=== PATIENT | female | born 1985 | race Caucasian/White ===

== ENCOUNTER 2019-05-05 04:38 | Inpatient (IN) ==
[2019-05-05] MEDS ORDERED: OXYTOCIN 30 UNITS/500 ML BAG IV PRN ×2 (05:22→12:53)
[2019-05-05] MEDS: LACTATED RINGER'S 1,000 ML IV PRN ×2 (05:30→07:41)
[2019-05-05 06:06] LABS: Hematocrit (blood only) 37.7 % (37-47); Hemoglobin 12.8 g/dL (12.0-16.0); Mean Corpuscular Hemoglobin 31.1 pg (25-34); Mean Corpuscular Volume 91.5 fL (80-100); Mean Platelet Volume 9.7 fL (7.4-10.4); Platelet Count 308 K/uL (130-400); RDW Coefficient of Variation 13.1 % (11.5-14.5); RDW Standard Deviation 43.8 fL (36.4-46.3); Red Blood Count 4.12 M/uL (4.2-5.4); White Blood Count 14.45 K/uL (4.8-10.8)
[2019-05-05] MEDS ORDERED: ePHEDrine sulfate 50 MG/ML AMP ONE (07:11)
[2019-05-05] MEDS ORDERED: fentaNYL citrate 100 MCG/2 ML VIAL ONE (07:11)
[2019-05-05] MEDS ORDERED: BUPIVACAINE 0.25% 30 ML VIAL ONE (07:11)
[2019-05-05] MEDS ORDERED: fentaNYL 2MCG/ML ROPIV 1.25MG/ML 100 ML BAG EPI ONE (07:12)
--- NOTE | 2019-05-05 07:38 | History & Physical Report ---
Date of Service May 05, 2019 Assessment & Plan (1) Supervision of normal first : Spontaneous labor. Admit to L&D. Would like epidural. labs, EFM/toco, IV access. History of Present Illness Chief Complaint: spontaneous labor Primary Care Provider: Jalen Chowdary DO 33yo @ 41 08/29 presents in spontaneous labor with regular contractions. No gush of fluid, no vaginal bleeding. + movement. complicated by obesity. GBS negative. She was scheduled for induction of labor today. 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 Beliefs That Will Affect Care: None marital status: Current Living Situation: Spouse current occupational status: employed Other Information That Helps Us Care for You: No Feels Safe at Home: Yes Safety Concerns: Feels Safe At This Time Smoking Status: Never smoker Do You Dip or Chew Tobacco: No ; Second Hand Exposure: No ; Tobacco Cessation Education Requested by Patient: No Hx Alcohol Use: No Hx Substance Use: No Dental Care, Regularly: Yes Review of Systems All systems reviewed & are unremarkable except as noted in HPI & below Physical Exam Physical Exam: SVE 6-7/100/-2, bulging membranes per RN FHT Cat 1 [place] Q 2-3 Constitutional: WD/WN, vitals as above Respiratory: normal respiratory effort, lungs clear to auscultation no respiratory distress Cardiovascular: Rate/Rhythm: regular rate and regular rhythm Gastrointestinal (Abdomen): Inspection/Auscultation: abdomen normal to inspection Percussion/Palpation: abdomen soft; abdomen nontender Gravid. No s/s chorio or abruption. Skin: no rashes, warm and dry Psychiatric: A+Ox3, euthymic affect Results & Data Vital Signs (Past 12 Hours) Vital Signs Temp Pulse Resp BP Pulse Ox 05/05/19 07:29 108 H 100 05/05/19 07:27 77 126/70 05/05/19 07:24 100 H 100 05/05/19 05:03 36.9 C 18 05/05/19 04:59 78 120/73 05/05/19 04:51 36.9 C 20
[2019-05-05] MEDS ORDERED: NALBUPHINE HCL INJ 10 MG/ML AMP IV PRN (07:56)
[2019-05-05] MEDS ORDERED: ONDANSETRON INJ 2 MG/ML 2 ML VIAL IV PRN (07:56)
[2019-05-05] MEDS ORDERED: NALOXONE HCL 1 MG in SODIUM CHLORIDE 0.9% 1000ML 1,000 ML IV PRN (07:56)
[2019-05-05] MEDS ORDERED: NALOXONE HCL 0.4 MG/1 ML VIAL/CARP IV PRN (07:56)
[2019-05-05] MEDS ORDERED: fentaNYL 2MCG/ML ROPIV 1.25MG/ML 100 ML BAG EPI PRN (07:56)
[2019-05-05] MEDS ORDERED: DiphenhydrAMINE HCL 50 MG/ML VIAL IV PRN (07:56)
[2019-05-05] MEDS ORDERED: ePHEDrine sulfate 50 MG/ML AMP IV PRN (07:56)
[2019-05-05] MEDS ORDERED: PROMETHAZINE HCL 6.25 MG in SODIUM CHLORIDE 0.9% 50 ML IV PRN (07:56)
--- NOTE | 2019-05-05 07:56 | Anesthesiology Consultation ---
Date of Service May 05, 2019 Assessment & Plan (1) Encounter for pre-operative examination: Chart Review Chart Review: Patient NOT seen in Pre Admission Testing and Acceptable Risk for Labor Epidural Consults Requested none ASA ASA2 Proposed Anesthesia Anesthesia Type: Labor Epidural Risk / Benefits Reviewed With: PT / POA / Parent / Guardian, Accepts Plan and Informed Consent Obtained History Height/Weight Height: 5 ft 7 in Weight: 119.748 kg Allergies Allergy/AdvReac Type Severity Reaction Status Date / Time No Known Drug Allergies Allergy Verified 05/04/19 15:58 Medications Home Medications Medication Instructions Recorded Confirmed Last Taken [id number] 3-fat com #1 27 cap PO cap 01/30/19 05/04/19 Unknown mg-1 mg-300 mg capsule Active Medications Generic Name Dose Route Start Last Admin Trade Name Freq PRN Reason Stop Dose Admin Lactated Ringer's 1,000 mls @ 125 mls/hr 05/05/19 05:22 05/05/19 07:41 Lr IV 05/07/19 05:21 125 mls/hr .Q8H PRN Administration L&D Protocol Protocol Past Medical History Medical History Anemia Chicken pox [place] teeth extracted Exercise / Class Metabolic Activity II 4-5 Yardwork/Stairs/Walk up hill Past Family History Family History Aunt Breast cancer Mother Ovarian cyst Past Surgical History Surgical History S/P cholecystectomy Past Anesthesia History No Hx of Anesthesia Complications and No Family Hx of Anesthesia Complications History of PONV No Hx of PONV and No Hx of Motion Sickness Social History Smoking Status: Never smoker Do You Dip or Chew Tobacco: No Hx Alcohol Use: No Hx Substance Use: No substance use type: does not use Physical Exam Vital Signs Last Vital Signs Temp 36.9 C 05/05/19 05:03 Pulse 91 H 05/05/19 07:52 Resp 18 05/05/19 07:15 BP 128/62 05/05/19 07:52 Pulse Ox 98 05/05/19 07:49 ENMT Mouth: no dentition abnormality Thyromental Distance: > or= 3.5 Finger Breadths Mallampati Class: II Neck normal visual inspection Respiratory normal respiratory effort Auscultation: lungs clear to auscultation bilaterally Cardiovascular Rate/Rhythm: regular rate and regular rhythm Psychiatric Orientation: alert Testing Laboratory Results 05/05/19 05:50
--- NOTE | 2019-05-05 09:45 | Labor Progress Brief Note ---
Date of Service May 05, 2019 Subjective Reason For Note: Routine Evaluation Comfortable with Epidural, feeling some pressure Assessment & Plan (1) Normal labor and delivery: Continue spontaneous labor. Patient getting some rest now that epidural in place, and likely to reach complete dilation soon. status reassuring. Present on Admission?: Yes Physical Exam Genitourinary: Manual OB Exam: + cervical dilation 9 cm, + cervical effacement 90%, + station + 1 and + amniotic fluid (No evidence ROM, but mucus plug coming out. ) OB Exam Monitor Tracing: + category I (earlies noted) Results & Data Vital Signs (Past 12 Hours) Vital Signs Temp Pulse Resp BP Pulse Ox 05/05/19 09:39 65 100 05/05/19 09:34 50 L 99 05/05/19 09:30 61 18 129/66 05/05/19 09:29 58 L 99 05/05/19 09:24 53 L 99 05/05/19 09:19 53 L 99 05/05/19 09:16 57 L 126/59 L 05/05/19 09:14 59 L 99 05/05/19 09:09 66 100 05/05/19 09:04 72 100 05/05/19 09:00 98.6 F 76 18 117/68 05/05/19 08:59 83 100 05/05/19 08:54 82 100 05/05/19 08:49 89 100 05/05/19 08:46 76 115/69 05/05/19 08:44 94 H 100 05/05/19 08:39 54 L 100 05/05/19 08:34 60 99 05/05/19 08:31 73 18 119/68 05/05/19 08:29 72 99 05/05/19 08:24 73 100 05/05/19 08:19 90 100 05/05/19 08:14 84 100 05/05/19 08:10 75 120/74 05/05/19 08:09 80 100 05/05/19 08:05 70 18 114/69 05/05/19 08:04 74 99 05/05/19 08:00 80 18 121/77 05/05/19 07:59 97 H 100 05/05/19 07:55 18 05/05/19 07:54 93 H 118/62 98 05/05/19 07:52 91 H 18 128/62 05/05/19 07:50 61 18 132/60 05/05/19 07:49 85 98 05/05/19 07:48 93 H 138/71 05/05/19 07:46 101 H 142/81 H 05/05/19 07:44 106 H 99 05/05/19 07:39 113 H 100 05/05/19 07:36 18 05/05/19 07:34 114 H 100 05/05/19 07:29 108 H 100 05/05/19 07:27 77 126/70 05/05/19 07:24 100 H 100 05/05/19 07:15 99.0 F 18 05/05/19 05:03 98.4 F 18 05/05/19 04:59 78 120/73 05/05/19 04:51 98.4 F 20
[2019-05-05] MEDS ORDERED: BENZOCAINE 20% AER SPR 82.5 GM CAN EXT PRN (12:53)
[2019-05-05] MEDS ORDERED: ACETAMINOPHEN 325 MG TAB PO PRN (12:53)
[2019-05-05] MEDS ORDERED: DIPHTHERIA/TETANUS/PERTUSSIS 0.5 ML SYR/VIAL IM ONE (12:53)
[2019-05-05] MEDS ORDERED: HYDROCORTISONE ACETATE 25 MG SUPP PR PRN (12:53)
[2019-05-05] MEDS ORDERED: bisacodyL 10 MG SUPP PR PRN (12:53)
[2019-05-05] MEDS ORDERED: SUPERCREAM 0.870% 15 GM JAR EXT PRN (12:53)
--- NOTE | 2019-05-05 14:41 | Anesthesia Procedure Note ---
Date of Service May 05, 2019 Anesthesia Post Epidural Note Vital Signs Vital Signs: Temp Pulse Resp BP Pulse Ox 36.6 C 100 H 18 127/69 99 05/05/19 12:20 05/05/19 14:00 05/05/19 14:15 05/05/19 14:00 05/05/19 12:44 Pain Intensity Back: Pain Intensity: 2 Notes Mental Status: alert / awake / arousable Nausea / Vomiting: adequately controlled Pain: adequately controlled Airway Patency, RR, SpO2: stable & adequate BP & HR: stable & adequate Hydration State: stable & adequate Neuraxial Anesthesia: was administered and sensory block is resolving Anesthetic Complications: no major complications apparent and Pt Satisfied with anesthetic care Epidural: Removed without complications and With tip intact
--- NOTE | 2019-05-05 14:41 | Delivery Summary ---
DATE OF OPERATION: 05/05/2019 PROCEDURE: Normal spontaneous vaginal delivery, second degree perineal laceration repair. SURGEON: Jb Claudio MD. PREOPERATIVE DIAGNOSES: 1. Single intrauterine at 41+ weeks' gestational age. 2. Labor. POSTOPERATIVE DIAGNOSES: 1. Single intrauterine at 41+ weeks' gestational age. 2. Labor. 3. Status post delivery. ESTIMATED BLOOD LOSS: 300 mL. DRAINS: None. FLUIDS: Continuous lactated Ringer. URINE OUTPUT: Not measured. COMPLICATIONS: None. FINDINGS: Viable male with weight pending, Apgars of 8 and 9 at one and five minutes, respectively. DESCRIPTION OF PROCEDURE: The patient progressed to 10 cm dilated, 100% effaced, +2 station, pushed over an intact perineum with epidural anesthesia and delivered a viable male with weight and Apgars as noted above. Head of the delivered in ZOILA position, restituted to right transverse. No nuchal cord was noted. Body and shoulders quickly followed. was delivered to maternal abdomen and was noted to be vigorous soon after delivery. A 1-minute delayed cord clamping was initiated, which the cord was doubly clamped and cut. Attention was then turned to deliver the placenta, which was delivered intact with 3-vessel cord with gentle cord traction. On inspection of the vagina, perineum and cervix, there was noted to be a second-degree perineal laceration, which was repaired with 3-0 Vicryl in the traditional crown stitch. Needle, sponge and instrument counts were correct at the completion of the case. Both mother and were stable in the immediate post-delivery period. I attest to the content of the Intraoperative Record and any orders documented therein. Any exception s are noted below.
[2019-05-05] MEDS: IBUPROFEN 600 MG TAB PO PRN ×2 (15:17→19:44)
[2019-05-05] MEDS: DOCUSATE SODIUM 100 MG CAP PO SCH (20:45)
[2019-05-06] MEDS: IBUPROFEN 600 MG TAB PO PRN ×3 (01:24→19:29)
[2019-05-06 06:44] LABS: Hematocrit (blood only) 32.8 % (37-47)
--- NOTE | 2019-05-06 06:56 | Obstetrical Progress Note ---
Date of Service <Reid Bustamante MD - Last Filed: 05/06/19 08:05> May 06, 2019 Assessment & Plan <Reid Bustamante MD - Last Filed: 05/06/19 08:05> (1) : 05/05 PPD#1 feels well, ambulating well, voiding well overnight will continue routine care after discharge will have follow-up in 6 weeks Subjective <Reid Bustamante MD - Last Filed: 05/06/19 08:05> Ms Thomas is a 33 y/o female ; PPD #1 following spontaneous vaginal delivery at 41 1/7 weeks; doing well this morning; still having some mild abdominal cramping/pain; voiding well, passing gas but no bowel movements at this point; tolerating meals overnight; and able to ambulate some within room; some persistent spotting this morning. Review of Systems Constitutional: denies fever; chills; sweats; headache Respiratory: denies shortness of breath, difficulty breathing Cardiac: denies chest pain; palpitations; chest pressure Breast: denies breast pain : denies dysuria Physical Exam <Reid Bustamante MD - Last Filed: 05/06/19 08:05> General: alert; oriented; no acute distress Cardiac: RRR; no m/g/r Respiratory: CTAB a/p; no wheezes/rales/rhonchi; no increased work of breathing; symmetrical chest rise; no respiratory distress Abdomen: soft; NT/ND; bowel sounds positive Uterus: uterine fundus firm; palpable 1cm below umbilicus Lower extrem: no lower extremity edema or swelling; no deep calf pain; Magdalene's sign negative b/l Results & Data <Reid Bustamante MD - Last Filed: 05/06/19 08:05> Vital Signs (Past 12 Hours) Vital Signs Temp Pulse Resp BP 05/05/19 20:30 37.1 C 81 18 125/82 Laboratory Results 05/06/19 Range/Units 06:24 Hgb 11.0 L (12.0-16.0) g/dL Hct 32.8 L (37-47) % Medications Administered Current Inpatient Medications Acetaminophen (Tylenol) 650 mg PO Q6H PRN PRN Reason: Pain/SHERMAN/Fever Stop: 06/04/19 12:52 Benzocaine (Dermoplast Pain Relieving Wann) 1 appln EXT PRN PRN PRN Reason: Perineal Discomfort Stop: 06/04/19 12:52 Last Admin: 05/05/19 15:18 Dose: 82.5 appln Documented by: Bisacodyl (Dulcolax) 5 mg PO 1999 [facility] Stop: 05/06/19 20:01 Bisacodyl (Dulcolax) 10 mg DC DAILY PRN PRN Reason: No BM on 2nd post- day Stop: 06/04/19 12:52 Cocaine HCl (Supercream 0.870%) 1 gm EXT BID PRN PRN Reason: Hemorrhoidal Inflammation Stop: 05/19/19 12:52 Docusate Sodium (Colace) 100 mg PO DAILY@08,21 [facility] Stop: 06/04/19 20:59 Last Admin: 05/05/19 20:45 Dose: 100 mg Documented by: Hydrocortisone (Anusol Hc) 25 mg DC BID PRN PRN Reason: Hemorrhoidal Inflammation Stop: 06/04/19 12:52 Oxytocin (Pitocin) 30 units in 500 mls @ 333.333 mls/hr IV .Q1H30M PRN; Prot ocol PRN Reason: Bleeding Control Ibuprofen (Motrin) 600 mg PO Q4H PRN PRN Reason: Pain/SHERMAN/Cramping/Fever Stop: 06/04/19 12:52 Last Admin: 05/06/19 01:24 Dose: 600 mg Documented by: Prenat Multivit/[place]/Iron/Folic Ac ( Vitamin) 1 tab PO DAILY@08 [facility] Stop: 06/05/19 07:59 <Jb Claudio MD - Last Filed: 05/06/19 08:21> Co-Signing Physician Notes Patient seen and evaluated and agree with the above findings and plan. Resident Activity Tracking <Reid Bustamante MD - Last Filed: 05/06/19 08:05> Resident Involvement: Resident Care Provided Care Provided: OB Delivery
[2019-05-06] MEDS: DOCUSATE SODIUM 100 MG CAP PO SCH ×2 (08:37→20:16)
[2019-05-06] MEDS: PRENATAL VITAMIN 1 TAB PO SCH (08:37)
[2019-05-06] MEDS ORDERED: bisacodyL 5 MG TABEC PO SCH (20:00)
[2019-05-07 00:19] VITALS: PULSE 80
--- NOTE | 2019-05-07 06:51 | Obstetrical Progress Note ---
Date of Service May 07, 2019 Assessment & Plan (1) Normal labor and delivery: PPD#2 , doing well. D/C instructions reviewed. Present on Admission?: Yes Subjective Ambulation: ambulating normally Voiding: no voiding problems Passing Gas:: Yes Diet Tolerance:: regular diet Lochia:: Small Feeding Type:: breast feeding Physical Exam Constitutional WD/WN, vitals as above Eyes PERRL, conjunctivae normal, anicteric sclerae Neck normal visual inspection Respiratory normal respiratory effort and able to speak in complete sentences; no r espiratory distress and no labored breathing Cardiovascular Rate/Rhythm: regular rate and regular rhythm Extremities: no edema Chest (Breasts) Chest: normal inspection of chest Gastrointestinal (Abdomen) Inspection/Auscultation: abdomen normal to inspection Soft, postgravid Psychiatric A+Ox3, euthymic affect Genitourinary OB Exam Abdomen: + fundal height Fundus: + firm and + relation to umbilicus (fundus just below umbilicus); not tender Results & Data Vital Signs (Past 12 Hours) Vital Signs Temp Pulse Resp BP Pulse Ox 05/06/19 23:40 99.1 F 80 16 132/84 96 05/06/19 19:55 99.0 F 77 16 114/75 97
[2019-05-07 08:21] VITALS: BP 124/86; TEMP 98.4; O2SAT 97
[2019-05-07] MEDS: DOCUSATE SODIUM 100 MG CAP PO SCH (09:32)
[2019-05-07] MEDS: PRENATAL VITAMIN 1 TAB PO SCH (09:32)
== END 2019-05-07 12:45 | disposition home or self-care (01) | DRG 807 ==
LOC: 4S1 04:38 → 4S2 15:15

== ENCOUNTER 2022-11-11 16:38 | Inpatient (IN) ==
[2022-11-11] MEDS ORDERED: LIDOCAINE 1% LOCAL 20 ML VIAL INFIL PRN (17:17)
[2022-11-11] MEDS ORDERED: OXYTOCIN 30 UNITS/500 ML BAG IV PRN ×2 (17:17→21:23)
[2022-11-11] MEDS ORDERED: PENICILLIN G POTASSIUM 6 MU in DEXTROSE 5% 250 ML IV STA (17:17)
--- NOTE | 2022-11-11 17:17 | History & Physical Report ---
Date of Service November 11, 2022 Assessment & Plan (1) Group B streptococcal infection during : History of Present Illness Primary Care Provider: Jalen Chowdary DO SUNDAR Calculator Estimated Delivery Date Method Current WG Current Estimate 11/11/22 Ultrasound #1 40w 0d Other Estimates 10/30/22 LMP (Certain) 41w 5d LMP: 01/23/22 : 3 Full term: 1 Premature: 0 Total Number of Induced Abortions: 0 Total Number of Spontaneous Abortions: 1 Ectopics: 0 Multiple births: 0 Number of Living Children: 1 and Delivery Plans AMA -NST weekly @ 36 weeks Obesity (BMI 40 and higher @ beginning of ) *Growth US @ 32wks *Weekly NSTs @ 34wks *BMI 40 or greater offer detailed/level II anatomy at [facility]- 06/16/22 @ [facility] [place] GBS positive in urine *Treat in labor Unable to View Heart on Anatomy @ [facility] * Echo-WNL Allergies Allergy/AdvReac Type Severity Reaction Status Date / Time No Known Drug Allergies Allergy Verified 11/11/22 16:19 Home Medications Medication Instructions Recorded Confirmed Type vitamins-iron fumarate 27 1 tab PO DAILY 05/05/19 11/11/22 History mg iron-folic acid 0.8 mg tablet ( Vitamin) albuterol sulfate 90 mcg/actuation 2 puff inhalation Q4H PRN 07/13/22 11/11/22 Rx aerosol inhaler shortness of breath or wheezing #8.5 grams Patient History Medical History Anemia Chicken pox Encounter for anatomic survey Encounter for pre-operative examination Normal labor and delivery Prolonged , antepartum Supervision of normal first Surgical History S/P cholecystectomy [place] teeth extracted Family History Aunt Breast cancer Mother Ovarian cyst Denies family history of Ovarian cancer Colorectal cancer Social History Smoking Status: Never smoker Second Hand Exposure: No; Hx Alcohol Use: No Hx Substance Use: No Preferred Language: Stateless Communication Ability: Effective Visual Impairment: No Limitations Hearing Ability: Normal Subway Conductor Required: No Beliefs That Will Affect Care: None marital status: marital status details: Yusef Thomas (33) [phone] Current Living Situation: Spouse Current Living Situation Comment: lives with spouse, son, outdoor cat current occupational status: employed current occupation: [employer] Other Information That Helps Us Care for You: No Feels Safe at Home: Yes Safety Concerns: Feels Safe At This Time Dental Care, Regularly: Yes Assistive Devices: None Review of Systems as per Subjective / HPI Physical Exam Constitutional: WD/WN, vitals as above well developed and well nourished Respiratory: normal respiratory effort, lungs clear to auscultation normal respiratory effort Cardiovascular: RRR, no murmur, no edema Gastrointestinal (Abdomen): normal bowel sounds, soft, nontender, no hepatosplenomegaly Results & Data Vital Signs (Past 12 Hours) Vital Signs Pulse BP 11/11/22 17:08 82 163/80 H Coding Level of Care Code None Diagnoses Group B streptococcal infection during O98.819; B95.1
[2022-11-11] MEDS: LACTATED RINGER'S 1,000 ML IV PRN ×2 (17:41→19:13)
[2022-11-11 17:52] LABS: Hematocrit (blood only) 36.5 % (37.0-47.0); Hemoglobin 12.4 g/dl (12.0-16.0); Mean Corpuscular Hemoglobin 30.5 pg (25.0-34.0); Mean Corpuscular Volume 89.7 fL (80.0-100.0); Mean Platelet Volume 9.6 fL (9.4-12.4); Platelet Count 350 K/uL (130-400); RDW Coefficient of Variation 12.9 % (11.5-14.5); Red Blood Count 4.07 M/uL (4.20-5.40); White Blood Count 10.74 K/ul (4.8-10.8)
[2022-11-11] MEDS ORDERED: ePHEDrine sulfate 50 MG/ML AMP ONE (18:34)
[2022-11-11] MEDS ORDERED: LIDOCAINE 2%/EPINEPHRINE 1:200,000 20 ML PF ONE (18:35)
[2022-11-11] MEDS ORDERED: SODIUM CHLORIDE 0.9% PF INJ 10 ML VIAL ONE (18:35)
[2022-11-11] MEDS ORDERED: fentaNYL citrate PF 100 MCG/2 ML VIAL ONE (18:35)
[2022-11-11] MEDS ORDERED: BUPIVACAINE 0.25% PF 30 ML VIAL ONE (18:35)
[2022-11-11] MEDS ORDERED: fentaNYL 2MCG/ML ROPIVACAINE 1.25MG/ML 100 ML BAG EPI ONE (18:36)
--- NOTE | 2022-11-11 19:20 | Anesthesiology Consultation ---
Date of Service November 11, 2022 Assessment & Plan Chart Review Chart Review: Acceptable Risk for Labor Epidural Consults Requested none History Height/Weight Height: 5 ft 7 in Weight: 119.295 kg Allergies Allergy/AdvReac Type Severity Reaction Status Date / Time No Known Drug Allergies Allergy Verified 11/11/22 16:19 Medications Home Medications Medication Instructions Recorded Confirmed Last Taken vitamins-iron fumarate 27 1 tab PO DAILY 05/05/19 11/11/22 05/03/19 mg iron-folic acid 0.8 mg tablet ( Vitamin) albuterol sulfate 90 mcg/actuation 2 puff inhalation Q4H PRN 07/13/22 11/11/22 Unknown aerosol inhaler shortness of breath or wheezing #8.5 grams Active Medications Generic Name Dose Route Start Last Admin Trade Name Freq PRN Reason Stop Dose Admin Lactated Ringer's 1,000 mls @ 125 mls/hr 11/11/22 17:17 11/11/22 19:13 Lr IV 11/13/22 17:16 999 mls/hr .Q8H PRN Administration L&D Protocol Protocol Past Medical History Medical History Anemia Chicken pox Encounter for anatomic survey Encounter for pre-operative examination Normal labor and delivery Prolonged , antepartum Supervision of normal first Past Family History Family History Aunt Breast cancer Mother Ovarian cyst Denies family history of Ovarian cancer Colorectal cancer Past Surgical History Surgical History S/P cholecystectomy [place] teeth extracted Social History Smoking Status: Never smoker Hx Alcohol Use: No Hx Substance Use: No substance use type: does not use Physical Exam Vital Signs Last Vital Signs Pulse 84 11/11/22 19:19 BP 143/67 H 11/11/22 19:19 Pulse Ox 92 11/11/22 19:19 Testing Laboratory Results 11/11/22 17:27
[2022-11-11] MEDS ORDERED: ePHEDrine sulfate 50 MG/ML AMP IV PRN (19:22)
[2022-11-11] MEDS ORDERED: NALOXONE HCL 1 MG in SODIUM CHLORIDE 0.9% 1000ML 1,000 ML IV PRN (19:22)
[2022-11-11] MEDS ORDERED: NALBUPHINE HCL INJ 10 MG/ML AMP IV PRN (19:22)
[2022-11-11] MEDS ORDERED: fentaNYL 2MCG/ML ROPIVACAINE 1.25MG/ML 100 ML BAG EPI PRN (19:22)
[2022-11-11] MEDS ORDERED: NALOXONE HCL 0.4 MG/1 ML VIAL/CARP IV PRN (19:22)
[2022-11-11] MEDS ORDERED: diphenhydrAMINE 50 MG/ML VIAL IV PRN (19:22)
[2022-11-11] MEDS ORDERED: PENICILLIN G POTASSIUM 3 MU in DEXTROSE 5% 100 ML IV PRN (20:18)
--- NOTE | 2022-11-11 21:09 | Delivery Summary ---
Vaginal Delivery Summary Date of Service November 11, 2022 Vaginal Delivery Summary Spontaneous vaginal delivery presented at 5 cm and active labor requested epidural COVID-negative antibiotics initiated for group B strep second baby records reviewed patient quickly progressed to fully dilated delivered a baby in occiput anterior position there was a tight nuchal cord which was clamped and cut after delivery of the head fluid was clear gentle traction the baby no excessive force easy delivery live vigorous male cord clamped already from the placenta the placenta was removed with gentle traction second-degree tear repaired with 3-0 Vicryl. I be oxytocin was started after delivery of the placenta uterine tone improved sponge and instrument counts correct estimated blood loss 200 mL
[2022-11-11] MEDS ORDERED: ACETAMINOPHEN 325 MG TAB PO PRN (21:23)
[2022-11-11] MEDS ORDERED: BENZOCAINE 20% AER SPR 82.5 GM CAN EXT PRN (21:23)
[2022-11-11] MEDS ORDERED: DIPHTHERIA/TETANUS/PERTUSSIS 0.5mL SYR/VIAL (Age 7+yrs) IM ONE (21:23)
[2022-11-11] MEDS ORDERED: HYDROCORTISONE ACETATE 25 MG SUPP PR PRN (21:23)
[2022-11-11] MEDS: IBUPROFEN 600 MG TAB PO PRN (23:09)
--- NOTE | 2022-11-11 23:39 | Anesthesia Procedure Note ---
Date of Service November 11, 2022 Anesthesia Post Epidural Note Vital Signs Vital Signs: Temp Pulse Resp BP Pulse Ox 36.8 C 94 H 18 141/75 H 97 11/11/22 19:30 11/11/22 23:11 11/11/22 22:42 11/11/22 23:11 11/11/22 21:17 Notes Mental Status: alert / awake / arousable Nausea / Vomiting: adequately controlled Pain: adequately controlled Airway Patency, RR, SpO2: stable & adequate BP & HR: stable & adequate Hydration State: stable & adequate Neuraxial Anesthesia: was administered and sensory block is resolving Anesthetic Complications: no major complications apparent and Pt Satisfied with anesthetic care Epidural: Removed without complications and With tip intact
--- NOTE | 2022-11-12 05:49 | Obstetrical Progress Note ---
Date of Service <Venecia PatinoDO - Last Filed: 11/12/22 06:39> November 12, 2022 Assessment & Plan <Venecia PatinoDO - Last Filed: 11/12/22 06:39> (1) Status post vaginal delivery: continue OOB, ambulation, diet as tolerated <Anupam Alexander MD, FACOG - Last Filed: 11/12/22 07:06> (1) Status post vaginal delivery: Subjective <Veneciamynor PatinoDO - Last Filed: 11/12/22 06:39> Peggy is a 36 y/o female who is now PPD # 1 following vaginal delivery at 40 weeks. Reports feeling well overall this morning. Mild abdominal cramping, pain well managed on analgesics. Voiding. Tolerating meals overnight and able to ambulate some. Some persistent lochia with some improvement this morning. Working on breast feeding. Review of Systems Denies fever, chills, sweats Denies shortness of breath, difficulty breathing, chest pain, palpitations, chest pressure. Denies breast pain. Denies dysuria. Denies headache or changes in vision. Physical Exam <Veneciamynor PatinoDO - Last Filed: 11/12/22 06:39> General: Alert, oriented. No acute distress. Cardiac: Regular rate and rhythm, no murmurs/rubs/gallops. Respiratory: Clear to auscultation bilaterally a/p, no wheezes/rales/rhonchi. No increased work of breathing. Symmetrical chest rise. No respiratory distress. Abdomen: Soft, nontender, nondistended. Bowel sounds present. Uterus: Uterine fundus firm, palpable 2 cm below umbilicus. Lower Extremities: No deep calf pain. Results & Data <Veneciamynor PatinoDO - Last Filed: 11/12/22 06:39> Vital Signs (Past 12 Hours) Vital Signs Temp Pulse Pulse Resp BP BP Pulse Ox 11/12/22 03:45 36.6 C 67 16 135/87 11/11/22 23:35 36.7 C 90 18 144/83 H 97 11/11/22 23:11 94 H 141/75 H 11/11/22 22:56 96 H 139/69 11/11/22 22:49 97 H 129/60 11/11/22 22:42 97 H 18 167/68 H 11/11/22 22:29 102 H 153/70 H 11/11/22 22:26 98 H 171/74 H 11/11/22 22:11 88 18 150/69 H 11/11/22 22:07 72 157/58 H 11/11/22 21:56 18 11/11/22 21:56 18 11/11/22 21:41 89 18 142/65 H 11/11/22 21:26 100 H 18 131/71 11/11/22 21:17 111 H 97 11/11/22 21:13 109 H 93 11/11/22 21:12 110 H 97 11/11/22 21:11 105 H 18 133/82 11/11/22 21:07 104 H 96 11/11/22 21:02 84 96 11/11/22 20:57 97 11/11/22 20:57 95 H 11/11/22 20:57 106 H 130/77 11/11/22 20:54 110 H 94 11/11/22 20:52 102 H 97 11/11/22 20:47 108 H 97 11/11/22 20:42 104 H 98 11/11/22 20:41 95 H 141/85 H 11/11/22 20:37 88 96 11/11/22 20:32 86 98 11/11/22 20:27 86 99 11/11/22 20:26 76 132/78 11/11/22 20:22 95 H 97 11/11/22 20:17 90 97 11/11/22 20:12 84 98 11/11/22 20:11 83 130/74 11/11/22 20:07 87 97 11/11/22 20:02 86 97 11/11/22 19:58 71 136/75 11/11/22 19:57 73 97 11/11/22 19:52 88 98 11/11/22 19:47 101 H 97 11/11/22 19:42 101 H 142/78 H 98 11/11/22 19:37 105 H 97 11/11/22 19:32 101 H 96 11/11/22 19:30 18 11/11/22 19:30 36.8 C 18 11/11/22 19:27 84 97 11/11/22 19:25 93 H 137/67 03/22/23 19:23 90 151/74 H 11/11/22 19:22 103 H 98 11/11/22 19:21 82 149/70 H 11/11/22 19:19 84 143/67 H 92 11/11/22 19:17 97 11/11/22 19:17 79 11/11/22 19:17 76 160/80 H 11/11/22 19:14 77 135/68 90 11/11/22 19:12 63 96 11/11/22 19:11 54 L 130/59 L 11/11/22 19:07 50 L 98 11/11/22 19:02 111 H 97 11/11/22 18:57 101 H 99 O2 Del Method 11/12/22 03:45 Room Air 11/11/22 23:35 Room Air 11/11/22 23:11 11/11/22 22:56 11/11/22 22:49 11/11/22 22:42 11/11/22 22:29 11/11/22 22:26 11/11/22 22:11 11/11/22 22:07 11/11/22 21:56 11/11/22 21:56 11/11/22 21:41 11/11/22 21:26 11/11/22 21:17 11/11/22 21:13 11/11/22 21:12 11/11/22 21:11 11/11/22 21:07 11/11/22 21:02 11/11/22 20:57 11/11/22 20:57 11/11/22 20:57 11/11/22 20:54 11/11/22 20:52 11/11/22 20:47 11/11/22 20:42 11/11/22 20:41 11/11/22 20:37 11/11/22 20:32 11/11/22 20:27 11/11/22 20:26 11/11/22 20:22 11/11/22 20:17 11/11/22 20:12 11/11/22 20:11 11/11/22 20:07 11/11/22 20:02 11/11/22 19:58 11/11/22 19:57 11/11/22 19:52 11/11/22 19:47 11/11/22 19:42 11/11/22 19:37 11/11/22 19:32 11/11/22 19:30 11/11/22 19:30 11/11/22 19:27 11/11/22 19:25 11/11/22 19:23 11/11/22 19:22 11/11/22 19:21 11/11/22 19:19 11/11/22 19:17 11/11/22 19:17 11/11/22 19:17 11/11/22 19:14 11/11/22 19:12 11/11/22 19:11 11/11/22 19:07 11/11/22 19:02 11/11/22 18:57 <Anupam Alexander MD, FACOG - Last Filed: 11/12/22 07:06> Co-Signing Physician Notes Resident Physician Supervision Note: I was present with Dr. Dr. Patino during the history and exam. I discussed the case with the resident and agree with the findings and plan as documented in the note. Any exceptions or clarifications are listed here: [None] Documented By: Anupam Alexander MD, FACOG Resident Activity Tracking <Venecia Patino DO - Last Filed: 11/12/22 06:39> Resident Involvement: Resident Care Provided Care Provided: OB Delivery (Post )
[2022-11-12] MEDS: IBUPROFEN 600 MG TAB PO PRN ×3 (06:11→20:24)
[2022-11-12 07:00] LABS: Hematocrit (blood only) 33.2 % (37.0-47.0); Hemoglobin 11.3 g/dl (12.0-16.0); Mean Corpuscular Hemoglobin 30.5 pg (25.0-34.0); Mean Corpuscular Volume 89.5 fL (80.0-100.0); Mean Platelet Volume 9.7 fL (9.4-12.4); Platelet Count 307 K/uL (130-400); RDW Standard Deviation 42.3 fL (36.4-46.3); Red Blood Count 3.71 M/uL (4.20-5.40)
[2022-11-12] MEDS: MEASLES, MUMPS & RUBELLA VIRUS VIAL SQ ONE ×2 (08:53→09:01)
[2022-11-12] MEDS: DOCUSATE SODIUM 100 MG CAP PO SCH ×2 (09:02→20:24)
[2022-11-12] MEDS: PRENATAL VITAMIN 1 TAB PO SCH (09:02)
[2022-11-12] MEDS ORDERED: bisacodyL 5 MG TABEC PO SCH (20:00)
[2022-11-13] MEDS ORDERED: bisacodyL 10 MG SUPP PR PRN
--- NOTE | 2022-11-13 05:35 | Obstetrical Progress Note ---
Date of Service <Venecia Patino DO - Last Filed: 11/13/22 06:31> November 13, 2022 Assessment & Plan <Venecia Patino DO - Last Filed: 11/13/22 06:31> (1) Status post vaginal delivery: continue OOB, ambulation, diet as tolerated Plan for 6 week post f/u Discharge instructions reviewed <Lin Walsh MD, FACOG - Last Filed: 11/13/22 07:35> (1) Status post vaginal delivery: Subjective <Venecia Patino DO - Last Filed: 11/13/22 06:31> Peggy is a 36 y/o female who is now PPD # 2 following vaginal delivery at 40 weeks. Reports feeling well overall this morning. Mild abdominal cramping, pain well managed on analgesics. Voiding. Tolerating meals overnight and able to ambulate some. Some persistent lochia with some improvement this morning. Breast feeding. Review of Systems Denies fever, chills, sweats Denies shortness of breath, difficulty breathing, chest pain, palpitations, ch est pressure. Denies breast pain. Denies dysuria. Denies headache or changes in vision. Physical Exam <Venecia Patino DO - Last Filed: 11/13/22 06:31> General: Alert, oriented. No acute distress. Cardiac: Regular rate and rhythm, no murmurs/rubs/gallops. Respiratory: Clear to auscultation bilaterally a/p, no wheezes/rales/rhonchi. No increased work of breathing. Symmetrical chest rise. No respiratory distress. Abdomen: Soft, nontender, nondistended. Uterus: Uterine fundus firm, palpable 3 cm below umbilicus. Lower Extremities: No deep calf pain. Results & Data <Venecia Patino DO - Last Filed: 11/13/22 06:31> Vital Signs (Past 12 Hours) Vital Signs Temp Pulse Resp BP O2 Del Method 11/12/22 23:25 36.9 C 83 18 113/74 11/12/22 19:40 36.8 C 88 18 131/86 Room Air <Lin Walsh MD, FACOG - Last Filed: 11/13/22 07:35> Co-Signing Physician Notes Resident Physician Supervision Note: I interviewed and examined the patient. Discussed with Dr. Patino and agree with findings and plan as documented in the note. Any exceptions or clarifications are listed here: Doing well. Plan d/c . Instructions given. Documented By: Lin Walsh MD, FACOG Resident Activity Tracking <Venecia Patino, DO - Last Filed: 11/13/22 06:31> Resident Involvement: Resident Care Provided Care Provided: OB Delivery (Post )
[2022-11-13] MEDS: DOCUSATE SODIUM 100 MG CAP PO SCH (08:20)
[2022-11-13] MEDS: PRENATAL VITAMIN 1 TAB PO SCH (08:20)
== END 2022-11-13 10:02 | disposition home or self-care (01) | DRG 807 ==
LOC: OPB 16:38 → 4S1 16:41 → 4E2 23:40